=== PATIENT | female | born 1970 | race Caucasian/White ===

== ENCOUNTER 2016-04-26 20:24 | Emergency (ER) | payer SELFPAY ==
[~2016-04-26] VITALS: Ht 157.5 cm; Wt 83.0 kg
[2016-04-26 20:38] VITALS: Ht 157.5 cm; Wt 83.0 kg
== END 2016-04-27 01:12 | disposition left against medical advice (07) ==
LOC: FTE 20:24
DX: Z53.21 Procedure and treatment not carried out due to patient leaving prior to being seen by health care provider (principal)